=== PATIENT | male | born 1965 | race Caucasian/White ===

== ENCOUNTER 2016-05-06 17:04 | Emergency (ER) | payer MEDICAID, OTHER ==
[2016-05-06 17:10] VITALS: TEMP 98.1
[2016-05-06] MEDS ORDERED: NS 1,000 ML IV ONE ×2 (18:02)
[2016-05-06] MEDS ORDERED: ONDANSETRON 4 MG/2 ML VIAL IVP ONE (18:02)
[2016-05-06 18:10] LABS: % IMMATURE GRANULYOCYTES 0.3 % (0.0-1.1); ABSOLUTE IMMATURE GRANULOCYTES 0.01 10^3/uL (0.00-0.10); ADD DIFF? NO; ADD MORPH? NO; ADD SCAN? NO; ATYPICAL LYMPHOCYTE FLAG 70 (0-99); FRAGMENT RBC FLAG 0 (0-99); HEMATOCRIT 45.9 % (40.0-51.0); HEMOGLOBIN 16.1 g/dL (13.7-17.5); LEFT SHIFT FLG 0 (0-99); LIPEMIA HEMOLYSIS FLAG 90 (0-99); MEAN CELL HEMOGLOBIN 30.9 pg (27.9-34.1); MEAN CELL HEMOGLOBIN CONCENTR. 35.1 g/dL (32.4-36.7); MEAN CELL VOLUME 88.1 fL (81.5-99.8); MEAN PLATELET VOLUME 10.6 fL (8.7-11.7); PLATELET CLUMPS FLAG 0 (0-99); PLATELET COUNT 183 10^3/uL (150-400); RED BLOOD CELL COUNT 5.21 10^6/uL (4.40-6.38); RED CELL DISTRIBUTION WIDTH 12.3 % (11.5-15.2)
[2016-05-06 18:15] LABS: ANION GAP 15 mEq/L (8-16); CALCIUM 8.7 mg/dL (8.5-10.4); CARBON DIOXIDE 14 mEq/l (22-31); CHLORIDE 110 mEq/L (97-110); CREATININE 0.9 mg/dL (0.7-1.3); GLOMERULAR FILTRATION RATE > 60; GLUCOSE 98 mg/dL (70-100); POTASSIUM 3.9 mEq/L (3.5-5.2); SODIUM 139 mEq/L (134-144)
--- NOTE | 2016-05-06 18:21 | EDPHY ---
H & P Stated Complaint: diarrhea since Time Seen by Provider: 05/06/16 17:21 HPI/ROS: CHIEF COMPLAINT: Diarrhea, dehydration, resolved vomiting HISTORY OF PRESENT ILLNESS: The patient presents to the ED with a 3 day history of profuse watery ongoing diarrhea. The patient reports symptoms of dehydration including fatigue, weakness and weight loss. The patient denies fever, melena or hematemesis. The patient has no history of antibiotic use. He has no history of travel outside the [place]. The patient has been taking Imodium and Pepto-Bismol without improvement of his symptoms. The patient denies significant past medical history. The patient takes no regular medications. The patient denies any infectious symptoms of fever, cough or congestion. REVIEW OF SYSTEMS: A comprehensive 10 point review of systems is otherwise negative aside from elements mentioned in the history of present illness. Source: Patient Exam Limitations: No limitations - Personal History Current Tetanus/Diphtheria Vaccine: Yes - Medical/Surgical History Hx Asthma: No Hx Chronic Respiratory Disease: No Hx Diabetes: No Hx Cardiac Disease: No Hx Renal Disease: No Hx Cirrhosis: No Hx Alcoholism: No Hx HIV/AIDS: No Hx Splenectomy or Spleen Trauma: No Other PMH: denies - Social History Smoking Status: Current every day smoker Alcohol Use: None Drug Use: None - Physical Exam Exam: General Appearance: Alert, no distress Eyes: Pupils equal and round no pallor or injection ENT, Mouth: Mucous membranes moist Respiratory: There are no retractions, lungs are clear to auscultation Cardiovascular: Regular rate and rhythm Gastrointestinal: Abdomen is soft and nontender, no masses, bowel sounds normal Neurological: A&O, normal motor function, normal sensory exam, normal cranial nerves Skin: Warm and dry, no rashes Musculoskeletal: Neck is supple nontender Extremities: symmetrical, full range of motion Constitutional: Initial Vital Signs Temperature (C) 36.7 C 05/06/16 17:06 Heart Rate 90 05/06/16 17:06 Respiratory Rate 17 05/06/16 17:06 Blood Pressure 119/96 H 05/06/16 17:06 O2 Sat (%) 95 05/06/16 17:06 O2 Delivery Mode Room Air Allergies/Adverse Reactions: No Known Allergies Allergy (Unverified 05/06/16 17:06) Home Medications: Medication Instructions Recorded Ondansetron Odt [Zofran Odt] 4 mg PO Q4PRN PRN #20 tab 05/06/16 Medical Decision Making ED Course/Re-evaluation: The patient presents to the ED with a likely infectious enteritis. The patient had an IV established. The patient received 2 L of normal saline and IV Zofran. The patient's abdominal examination is benign. He is well-appearing. The patient is noted to have rotavirus. He has a slightly decreased CO2 secondary to dehydration. After IV and oral rehydration the patient is feeling much better. The patient has been informed that rotavirus is typically a self-limited illness. He should return to the ED for symptoms of recurrent dehydration, pain, fever or other concerns. Differential Diagnosis: Differential diagnosis considered includes bacterial dysentery, viral gastroenteritis, dehydration, metabolic abnormality - Data Points Laboratory Results: Laboratory Results 05/06/16 17:40 05/06/16 17:40 05/06/16 17:40 WBC 3.73 L 10^3/uL (3.80-9.50) RBC 5.21 10^6/uL (4.40-6.38) Hgb 16.1 g/dL (13.7-17.5) Hct 45.9 % (40.0-51.0) MCV 88.1 fL (81.5-99.8) MCH 30.9 pg (27.9-34.1) MCHC 35.1 g/dL (32.4-36.7) RDW 12.3 % (11.5-15.2) Plt Count 183 10^3/uL (150-400) MPV 10.6 fL (8.7-11.7) Neut % (Auto) 57.3 % (39.3-74.2) Lymph % (Auto) 27.1 % (15.0-45.0) Sibley % (Auto) 14.2 H % (4.5-13.0) Eos % (Auto) 0.3 L % (0.6-7.6) Baso % (Auto) 0.8 % (0.3-1.7) Nucleat RBC Rel Count 0.0 % (0.0-0.2) Absolute Neuts (auto) 2.14 10^3/uL (1.70-6.50) Absolute Lymphs (auto) 1.01 10^3/uL (1.00-3.00) Absolute Monos (auto) 0.53 10^3/uL (0.30-0.80) Absolute Eos (auto) 0.01 L 10^3/uL (0.03-0.40) Absolute Basos (auto) 0.03 10^3/uL (0.02-0.10) Absolute Nucleated RBC 0.00 10^3/uL (0-0.01) Immature Gran % 0.3 % (0.0-1.1) Immature Gran # 0.01 10^3/uL (0.00-0.10) Sodium 139 mEq/L (134-144) Potassium 3.9 mEq/L (3.5-5.2) Chloride 110 mEq/L (97-110) Carbon Dioxide 14 L mEq/l (22-31) Anion Gap 15 mEq/L (8-16) BUN 17 mg/dL (7-23) Creatinine 0.9 mg/dL (0.7-1.3) Estimated GFR > 60 Glucose 98 mg/dL (70-100) Calcium 8.7 mg/dL (8.5-10.4) Microbiology Results: MICROBIOLOGY 05/06/16 17:30 Stool Gastrointestinal Tract Panel (PCR) - Final Rotavirus A Medications Given: Discontinued Medications Sodium Chloride (Ns) 1,000 mls @ 0 mls/hr IV ONCE ONE PRN Reason: Wide Open Stop: 05/06/16 18:03 Last Admin: 05/06/16 18:07 Dose: 1,000 mls Sodium Chloride (Ns) 1,000 mls @ 0 mls/hr IV ONCE ONE PRN Reason: Wide Open Stop: 05/06/16 18:03 Last Admin: 05/06/16 18:15 Dose: 1,000 mls Ondansetron HCl (Zofran) 4 mg IVP EDNOW ONE Stop: 05/06/16 18:03 Last Admin: 05/06/16 18:15 Dose: Not Given Departure - Departure Disposition: Home, Routine, Self-Care Clinical Impression: Rotavirus enteritis Condition: Good Instructions: Gastroenteritis (ED) Additional Instructions: 1. Zofran as needed for nausea. 2. Continue Imodium as needed for the next 3-5 days. 3. You have a infection with rotavirus which is a self-limited viral intestinal infection. Please return to the ED if you are developing recurrent symptoms dehydration, fever, increasing pain or other concerns. 4. Try and stay hydrated with electrolyte containing fluids.
[2016-05-06 20:18] VITALS: BP 122/88; PULSE 75; RESP 16; O2SAT 96
== END 2016-05-06 20:34 | disposition home or self-care (01) ==
DX: A08.39 Other viral enteritis (principal); F17.200 Nicotine dependence, unspecified, uncomplicated
CPT/HCPCS: J2405